=== PATIENT | female | born 1990 | race Hispanic/Latino ===

== ENCOUNTER 2022-05-07 19:43 | Emergency (ER) | payer OTHER ==
[2022-05-07 20:39] LABS: Urine Blood Negative (Negative); Urine Glucose Negative (Negative); Urine Protein Negative (Negative)
[2022-05-07 21:21] LABS: SARS-COV-2 RT PCR NEGATIVE (NEGATIVE)
[2022-05-07] MEDS ORDERED: NA CHLORIDE 0.9% 1,000 ML ONE (21:51)
[2022-05-07] MEDS ORDERED: FAMOTIDINE 20 MG/2 ML VIAL IV ONE (21:51)
[2022-05-07] MEDS ORDERED: ONDANSETRON 4 MG/2 ML VIAL ONE (21:51)
--- NOTE | 2022-05-07 22:11 | RAD REPORT ---
EXAM DESCRIPTION: RAD - Chest Single View - 05/07/2022 9:36 pm CLINICAL HISTORY: COUGH COMPARISON: none FINDINGS: Lines: None. Lungs: No evidence of edema or pneumonia. Pleural: No significant pleural effusions or pneumothorax. Cardiac: The heart size is within normal limits. Mediastinum: Within normal limits. Bones: No acute fractures. Other: None IMPRESSION: No acute cardiopulmonary disease.
[2022-05-07 22:43] LABS: Albumin 3.9 g/dL (3.4-5.0); Bilirubin Total 0.8 mg/dL (0.2-1.0); Potassium 3.6 mmol/L (3.5-5.1); Protein, Total 7.9 g/dL (6.4-8.2)
[2022-05-07 23:09] LABS: Urine Bacteria None Seen /HPF (<20); Urine Mucus Slight /HPF (None Seen); Urine RBC <5 /HPF (None Seen); Urine WBC Clump Rare /HPF (None Seen)
[2022-05-07 23:14] LABS: Lymphocytes % 16.1 % (15.3-44.8); MPV 7.8 fL (7.6-11.3); RBC Red Blood Cell Count 4.59 M/uL (3.86-4.86)
--- NOTE | 2022-05-07 23:33 | RAD REPORT ---
EXAM DESCRIPTION: CTAbdomen Pelvis W Contrast - 05/07/2022 11:22 pm CLINICAL HISTORY: nausea/vomiting COMPARISON: None TECHNIQUE: CT of the abdomen and pelvis was performed with IV contrast. All CT scans are performed using dose optimization technique as appropriate and may include automated exposure control or mA/KV adjustment according to patient size. FINDINGS: Lower chest: Circumferential thickened distal esophagus. Liver: No acute abnormality or suspicious lesions. Biliary: No biliary ductal dilatation. Stomach: No significant focal abnormality. Duodenum: No significant focal abnormality. Pancreas: No significant abnormality. Spleen: No significant abnormality. Adrenal: No suspicious lesions. Kidney/ureter: No hydronephrosis. No renal calculi. Retroperitoneum: No retroperitoneal adenopathy. Vascular: No aneurysm. Bowel: No significant focal abnormality. Normal appendix. Peritoneum: No ascites or free air. Bladder: Grossly unremarkable. Reproductive: No adnexal masses. Bones: No acute fracture. Other: n/a IMPRESSION: No acute intra-abdominal or pelvic finding. Circumferentially thickened distal esophagus likely reflecting esophagitis. Normal appendix. No urinary tract calculi.
[2022-05-07] MEDS ORDERED: MAGNES/ALUMIN/SIMET 30ML UCUP ONE (23:49)
[2022-05-07] MEDS ORDERED: PANTOPRAZOLE 40 MG INJ ONE (23:50)
[2022-05-07] MEDS ORDERED: LIDOCAINE VISCOUS 2% SOLN 15 ML UDC ONE (23:50)
[2022-05-08] MEDS ORDERED: MORPHINE 2 MG/ML SYR ONE (00:08)
--- NOTE | 2022-05-08 00:21 | EDPHYS ---
Physician Documentation [facility] [place] Name: Savannah aGy Age: 32 yrs Sex: Female : 1990 Arrival Date: 05/07/2022 Time: 19:49 Bed 19 Private MD: ED Physician Catherine Preciado HPI: 05/07 20:30 This 32 yrs old Female presents to ER via Ambulatory with complaints of cp Abdominal Pain, Vomiting, Nausea, Decreased Appetite. 20:30 The patient presents with abdominal pain in the epigastric area, lower substernal. cp Onset: The symptoms/episode began/occurred 3 day(s) ago. Associated signs and symptoms: Pertinent positives: nausea and vomiting, fever, Pertinent negatives: constipation, shortness of breath, vomiting blood. The symptoms are described as constant. Severity of pain: in the emergency department the pain is unchanged despite home interventions. The patient has been recently seen at an urgent care, for similar complaints, prescribed medication for acid reflux. 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 - Social history:: Smoking status: Patient denies any tobacco usage or history of. ROS: 20:35 Constitutional: Positive for poor PO intake, Negative for fever. cp 20:35 Eyes: Negative for injury, pain, redness, and discharge. cp 20:35 ENT: Negative for drainage from ear(s), ear pain, sore throat, difficulty swallowing, difficulty handling secretions. 20:35 Cardiovascular: Negative for edema, palpitations. 20:35 Respiratory: Positive for cough, Negative for shortness of breath, wheezing. 20:35 Abdomen/GI: Positive for abdominal pain, nausea and vomiting, anorexia, Negative for diarrhea, constipation, hematemesis. 20:35 : Negative for urinary symptoms. 20:35 Neuro: Negative for altered mental status, headache, weakness. 20:35 All other systems are negative. Exam: 20:40 Constitutional: The patient appears in no acute distress, alert, awake, cp non-diaphoretic, non-toxic, well developed, well nourished, uncomfortable. 20:40 Head/Face: Normocephalic, atraumatic. cp 20:40 Eyes: Periorbital structures: appear normal, Conjunctiva: normal, no exudate, no injection, Sclera: no appreciated abnormality, Lids and lashes: appear normal, bilaterally. 20:40 ENT: External ear(s): are unremarkable, Ear canal(s): are normal, clear, TM's: dullness, bilaterally, Nose: is normal, Mouth: Lips: moist, Oral mucosa: pink and intact, moist, Posterior pharynx: Airway: no evidence of obstruction, patent, Tonsils: are normal in appearance, swelling, is not appreciated, erythema, is not appreciated, exudate, is not appreciated. 20:40 Chest/axilla: Inspection: normal. 20:40 Cardiovascular: Rate: tachycardic, Rhythm: regular, Edema: is not appreciated, JVD: is not appreciated. 20:40 Respiratory: the patient does not display signs of respiratory distress, Respirations: normal, no use of accessory muscles, no retractions, labored breathing, is not present, Breath sounds: are clear throughout, no decreased breath sounds, no stridor, no wheezing. 20:40 Abdomen/GI: Inspection: abdomen appears normal, Bowel sounds: active, all quadrants, Palpation: soft, in all quadrants, moderate abdominal tenderness, in the epigastric area and xiphoid area, rebound tenderness, is not appreciated, involuntary guarding, is not appreciated. 20:40 Back: CVA tenderness, is absent. 20:40 Skin: no rash present. 20:40 Neuro: Orientation: to person, place \T\ time. Mentation: is normal, Motor: moves all fours, strength is normal, Sensation: is normal. 21:47 ECG was reviewed by the Attending Physician. cp Vital Signs: 20:08 BP 135 / 98; Pulse 115; Resp 24; Temp 100; Pulse Ox 98% on R/A; Weight 78.93 kg; Height tw5 5 ft. 3 in. (160.02 cm); Pain 10/10; 21:04 BP 119 / 90; Pulse 108; Resp 20; Pulse Ox 98% ; jj7 22:00 BP 137 / 89; Pulse 103; Resp 19; Pulse Ox 99% ; jj7 23:00 BP 123 / 73; Pulse 99; Resp 17; Pulse Ox 99% ; Pain 10/10; 7 05/08 00:00 BP 134 / 88; Pulse 99; Resp 17; Pulse Ox 99% ; Pain 1/10; 7 05/07 20:08 Body Mass Index 30.82 (78.93 kg, 160.02 cm) [facility] MDM: 05/07 20:33 Patient medically screened. 05/08 00:20 Data reviewed: vital signs, nurses notes, lab test result(s), EKG, radiologic studies, cp CT scan, plain films. 00:20 Differential diagnosis: appendicitis, cholecystitis, Cholelithiasis, gastritis, cp gastroesophageal reflux disease, GI Bleed, non-specific abd pain, pancreatitis, Peptic Ulcer Disease, Perf. Duodenal Ulcer, Perf. Gastric Ulcer, Pyelonephritis, Ureterolithiasis, urinary tract infection. Test interpretation: by ED physician or midlevel provider: ECG, plain radiologic studies. 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 Response to treatment: the patient's symptoms have mildly improved after treatment, and as a result, I will discharge patient. Special discussion: Based on the patient's Hx, exam, and Dx evaluation, there is no indication for emergent surgery or inpatient Tx. It is understood by the patient/guardian that if the Sx's persist or worsen they need to return immediately for re-evaluation. 05/07 20:23 Order name: Strep; Complete Time: 22:58 [facility] 05/07 20:23 Order name: COVID-19/FLU A+B; Complete Time: 22:58 [facility] 05/07 20:39 Order name: Urine Dipstick-Ancillary; Complete Time: 22:58 [facility] 05/07 20:41 Order name: Urine --Ancillary (enter results); Complete Time: 22:58 mw2 05/07 20:56 Order name: Throat Culture [facility] 05/07 21:12 Order name: CBC with Diff; Complete Time: 23:41 cp 05/07 21:12 Order name: CMP; Complete Time: 22:58 cp 05/07 23:59 Interpretation: GLOB 4.0; A/G 1.0; Reviewed. cp 05/07 21:12 Order name: Lipase; Complete Time: 22:58 cp 05/07 21:12 Order name: Urine Microscopic Only; Complete Time: 23:41 cp 05/08 00:00 Interpretation: Reviewed. cp 05/07 21:12 Order name: XRAY Chest (1 view); Complete Time: 22:58 cp 05/07 23:00 Order name: CT Abd/Pelvis - IV Contrast Only; Complete Time: 23:41 cp 05/08 00:00 Interpretation: Report reviewed. cp 05/07 23:14 Order name: Urine Culture [facility] 05/07 20:23 Order name: Urine Dipstick-Ancillary (obtain specimen); Complete Time: 20:41 tw5 05/07 20:23 Order name: Urine Test (obtain specimen); Complete Time: 20:41 tw5 05/07 21:12 Order name: IV Saline Lock; Complete Time: 22:12 cp 05/07 21:12 Order name: Labs collected and sent; Complete Time: 22:12 cp 05/07 21:13 Order name: EKG; Complete Time: 21:13 cp 05/07 21:13 Order name: EKG - Nurse/Tech; Complete Time: 22:11 cp 05/08 00:02 Order name: PO challenge; Complete Time: 00:16 cp EC/03 21:47 Rate is 101 beats/min. Rhythm is regular. MT interval is normal. QRS interval is cp normal. QT interval is normal. T waves are Inverted in lead aVR. Interpreted by me. Reviewed by me. Administered Medications: 22:04 Drug: NS 0.9% 1000 ml Route: IV; Rate: 1 bolus; Site: right antecubital; jj7 22:04 Drug: Pepcid (famotidine) 20 mg Route: IVP; Site: right antecubital; j7 22:04 Drug: Zofran (Ondansetron) 4 mg Route: IVP; Site: right antecubital; jj7 05/08 00:22 Follow up: Response: No adverse reaction j7 00:23 Follow up: Response: No adverse reaction jj7 05/07 23:55 Drug: GI Cocktail without - (Maalox Suspension 30 ml, Lidocaine Liquid 2 % 15 jj7 ml) Route: PO; 05/08 00:22 Follow up: Response: No adverse reaction j 00:22 Follow up: Response: No adverse reaction j7 05/07 23:55 Drug: ProTONIX (pantoprazole) 40 mg Route: IVP; Site: right antecubital; jj7 05/08 00:22 Follow up: Response: No adverse reaction j 00:07 Drug: morphine 2 mg Route: IVP; Infused Over: 4 mins; Site: right antecubital; jj7 Disposition Summary: 05/08/22 00:20 Discharge Ordered Location: Home cp Problem: new cp Symptoms: have improved cp Condition: Stable cp Diagnosis - Nausea with vomiting, unspecified cp - Epigastric pain cp Followup: cp - With: Private Physician - When: 1 week - Reason: Recheck today's complaints Discharge Instructions: - Discharge Summary Sheet cp - Gastroesophageal Reflux Disease, Adult cp - Nausea and Vomiting, Adult cp Forms: - Medication Reconciliation Form cp - Thank You Letter cp - Antibiotic Education cp - Prescription Opioid Use cp Prescriptions: - Protonix 40 mg Oral tablet,delayed release (DR/EC) - take 1 tablet by ORAL route every 12 hours; 60 tablet; Refills: 0, Product cp Selection Permitted - Zofran 4 mg Oral Tablet - take 1 tablet by ORAL route every 12 hours As needed; 20 tablet; Refills: 0, cp Product Selection Permitted Signatures: Dispatcher [employer] [facility] Osvaldo Rucker PA PA cp Wood, Tiffany tw5 Sasha Murcia RN RN jj7 Corrections: (The following items were deleted from the chart) 05/07 23:59 23:59 Reviewed. cp cp
--- NOTE | 2022-05-08 00:21 | ER ---
Nurse's Notes [facility] Name: Savannah Gay Age: 32 yrs Sex: Female : 1990 Arrival Date: 05/07/2022 Time: 19:49 Bed 19 Private MD: Diagnosis: Nausea with vomiting, unspecified;Epigastric pain Presentation: 05/07 20:08 Chief complaint: Patient states: "I had went to urgent care because I thought I had tw5 acid reflux, but then I was telling them my symptoms. I have had a fever for the past three days, nausea and vomiting. They gave me some medication for the reflux and if that doesn't work to come to the ER.". Chief complaint:. Coronavirus screen: Vaccine status: Patient reports receiving the 2nd dose of the covid vaccine. Moderna. Ebola Screen: Patient negative for fever greater than or equal to 101.5 degrees Fahrenheit, and additional compatible Ebola Virus Disease symptoms Patient denies exposure to infectious person. Patient denies travel to an Ebola-affected area in the 21 days before illness onset. Initial Sepsis Screen: Does the patient meet any 2 criteria? Temp <36.0*C (96.8*F)) or > 38.3*C (100.9*F). HR > 90 bpm. Does the patient have a suspected source of infection? Yes: Acute abdominal pain If YES to both, name of provider notified: Catherine Preciado MD Risk Assessment: Do you want to hurt yourself or someone else? Patient reports no desire to harm self or others. Onset of symptoms was May 05, 2021. Care prior to arrival: Medication(s) given: Tylenol, Took around 4 PM. 20:08 Acuity: SILVER 3 tw5 20:08 Method Of Arrival: Ambulatory tw5 Triage Assessment: 20:13 General: Appears ill, Behavior is cooperative, appropriate for age. Pain: Complains of tw5 pain in xiphoid area Pain currently is 10 out of 10 on a pain scale. GI: Reports nausea, vomiting. 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 - Social history:: Smoking status: Patient denies any tobacco usage or history of. Screenin:04 [facility] ED Fall Risk Assessment (Adult) History of falling in the last 3 months, jj7 including since admission No falls in past 3 months (0 pts) Confusion or Disorientation No (0 pts) Intoxicated or Sedated No (0 pts) Impaired Gait No (0 pts) Mobility Assist Device Used No (0 pt) Altered Elimination No (0 pt) Score/Fall Risk Level 0 - 2 = Low Risk. Abuse screen: Denies threats or abuse. Nutritional screening: No deficits noted. Tuberculosis screening: No symptoms or risk factors identified. Assessment: 21:04 General: Appears in no apparent distress. comfortable, Behavior is calm, cooperative, jj7 appropriate for age. GI: Bowel sounds present X 4 quads. Abd is soft X 4 quads Abd is non tender X 4 quads Reports epigastric pain, nausea. 21:04 Reassessment: ASSUMED CARE OF PT. PT SITTING IN BED .NO DISTRESS NOTED. C/O EPIGASTRIC jj7 PAIN. VS STABLE. CALL TYLER IN REACH. AT BEDSIDE. Vital Signs: 20:08 BP 135 / 98; Pulse 115; Resp 24; Temp 100; Pulse Ox 98% on R/A; Weight 78.93 kg; Height tw5 5 ft. 3 in. (160.02 cm); Pain 10/10; 21:04 BP 119 / 90; Pulse 108; Resp 20; Pulse Ox 98% ; jj7 22:00 BP 137 / 89; Pulse 103; Resp 19; Pulse Ox 99% ; jj7 23:00 BP 123 / 73; Pulse 99; Resp 17; Pulse Ox 99% ; Pain 10/10; jj7 05/08 00:00 BP 134 / 88; Pulse 99; Resp 17; Pulse Ox 99% ; Pain 1/10; jj7 05/07 20:08 Body Mass Index 30.82 (78.93 kg, 160.02 cm) tw5 ED Course: 05/07 19:49 Patient arrived in ED. ja2 20:12 Triage completed. tw5 20:13 Arm band placed on. tw5 20:33 Osvaldo Rucker PA is PHCP. cp 20:33 Catherine Preciado MD is Attending Physician. cp 21:04 Patient has correct armband on for positive identification. Bed in low position. Call jj7 light in reach. Adult w/ patient. 21:04 No provider procedures requiring assistance completed. jj7 21:14 Sasha Murcia, DANGELO is Primary Nurse. jj7 21:37 XRAY Chest (1 view) In Process Unspecified. EDMS 22:03 Inserted saline lock: 20 gauge in right antecubital area, using aseptic technique. jj7 Blood collected. 22:12 CBC with Diff Sent. jj7 22:12 CMP Sent. jj7 22:12 Lipase Sent. jj7 23:23 CT Abd/Pelvis - IV Contrast Only In Process Unspecified. EDMS 05/08 00:41 IV discontinued, intact, bleeding controlled, No redness/swelling at site. Pressure jj7 dressing applied. Administered Medications: 05/07 22:04 Drug: NS 0.9% 1000 ml Route: IV; Rate: 1 bolus; Site: right antecubital; jj7 22:04 Drug: Pepcid (famotidine) 20 mg Route: IVP; Site: right antecubital; jj7 22:04 Drug: Zofran (Ondansetron) 4 mg Route: IVP; Site: right antecubital; jj7 05/08 00:22 Follow up: Response: No adverse reaction jj7 00:23 Follow up: Response: No adverse reaction jj7 05/07 23:55 Drug: GI Cocktail without - (Maalox Suspension 30 ml, Lidocaine Liquid 2 % 15 jj7 ml) Route: PO; 05/08 00:22 Follow up: Response: No adverse reaction jj7 00:22 Follow up: Response: No adverse reaction jj7 05/07 23:55 Drug: ProTONIX (pantoprazole) 40 mg Route: IVP; Site: right antecubital; jj7 05/08 00:22 Follow up: Response: No adverse reaction jj7 00:07 Drug: morphine 2 mg Route: IVP; Infused Over: 4 mins; Site: right antecubital; jj7 Medication: 05/07 21:04 VIS not applicable for this client. jj7 Outcome: 05/08 00:20 Discharge ordered by . cp 00:38 Discharged to home ambulatory, with significant other. jj7 00:38 Condition: improved 00:38 Discharge instructions given to patient, significant other, Instructed on discharge instructions, follow up and referral plans. medication usage, Demonstrated understanding of instructions, follow-up care, medications, Prescriptions given X 2. 00:42 Patient left the ED. jj7 Signatures: Dispatcher [employer] EDMS Osvaldo Rucker PA PA cp Alexander, Jessica jaAileen Vick tw5 Sasha Murcia RN RN jj7 Corrections: (The following items were deleted from the chart) 05/07 20:15 20:08 Initial Sepsis Screen: Does the patient meet any 2 criteria? Temp <36.0*C tw5 (96.8*F)) or > 38.3*C (100.9*F). HR > 90 bpm. Does the patient have a suspected source of infection? Yes: Acute abdominal pain tw5
[2022-05-08 00:53] VITALS: TEMP 100
[2022-05-08 00:55] VITALS: O2SAT 99
[2022-05-08 00:58] VITALS: BP 134/88
--- NOTE | 2022-05-08 16:02 | EKG ---
Test Date: 2022-05-07 Test Time: 21:41:07 Local Delivery Truck Driver: DINORAH MEASUREMENT RESULTS: Intervals: Rate: 101 CO: 128 QRSD: 82 QT: 326 QTc: 422 [place]: P: 48 CO: 128 QRS: 62 T: 29 INTERPRETIVE STATEMENTS: Sinus tachycardia Otherwise normal ECG No previous ECG available for comparison Electronically Signed On 05-08-22 16:01:18 WINDOWS PHONE DEVELOPER by Norberto Farmer
== END 2022-05-08 00:42 | disposition home or self-care (01) ==
LOC: ER 19:43
DX: R10.13 Epigastric pain (principal); R11.2 Nausea with vomiting, unspecified; Z20.822 Contact with and (suspected) exposure to COVID-19
CPT/HCPCS: 93005; 87070; 87088; 85025; 87086; 36415; 81025; 87081; 83690; 80053; 0240U; 74177; 71045; 96375; 96374; 99284; Q9967; C9113; J2270; J7030; J2405; 81003; 81015